=== PATIENT | female | born 1945 | race Caucasian/White ===

== ENCOUNTER → 2016-12-24 | Outpatient (CLI) | payer MEDICARE ==
--- NOTE | 2016-12-24 11:12 | CT ---
EXAM DESCRIPTION: Abdomen/Pelvis w/Contrast CLINICAL HISTORY: ABD AND PELVIC PAIN. COMPARISON: None. TECHNIQUE: Postcontrast CT images of the abdomen and pelvis are obtained. This exam was performed according to our departmental dose-optimization program, which includes automated exposure control, adjustment of the mA and/or kV according to patient size and/or use of iterative reconstruction technique . FINDINGS: Visualized lung bases show moderate coronary artery calcifications. Peripheral interstitial probable scarring in the right lower lobe is seen although there are areas of focal groundglass airspace densities. This is nonspecific. The liver, spleen, adrenal glands, and gallbladder are unremarkable. There is moderate fatty replacement of the pancreas. Moderate atherosclerotic disease is seen. There is moderate right hydronephrosis and hydroureter secondary to a 4 x 6 mm calcification in the distal ureter at the level of the ureterovesical junction. AP diameter of the right renal pelvis measures 2.7 cm. No other calculi are identified. Left kidney and ureter are unremarkable. Urinary bladder is contracted. There is subsidence of the uterus. The ovaries are not identified. Appendix is normal. No small bowel obstruction or inflammation. Stomach is contracted. Moderate amount of formed fecal material throughout the colon is seen. There are moderate scattered diverticuli of the descending to sigmoid colon without associated inflammatory changes or fluid collections. Severe degenerative changes of the spine are seen. IMPRESSION: Moderate right hydronephrosis and hydroureter is seen secondary to 4 x 6 mm calcification of the distal right ureter at the ureterovesical junction. Moderate colon diverticulosis without CT evidence of diverticulitis. Mild to moderate constipation or obstipation of the colon is suggested. Electronically signed by: Chas Castrejon MD 12/24/2016 11:11 AM CDT
--- NOTE | 2016-12-24 12:11 | US ---
EXAM DESCRIPTION: Venous,Lower Extremity LT CLINICAL HISTORY: 70 years, Female, ABNORMAL COAGULATION PROFILE R79.1 COMPARISON: None TECHNIQUE: Duplex venous ultrasound of the left lower extremity was performed. FINDINGS: There is occlusive or near occlusive thrombus involving the left common femoral, superficial femoral, great saphenous, popliteal and peroneal veins. No DVT is identified in the left posterior tibial vein. IMPRESSION: Extensive left-sided deep and superficial venous thrombosis as detailed above. Findings were reported by telephone to the ordering physician by me at the time of this dictation. Electronically signed by: Justin Hairston MD 12/24/2016 12:10 PM CDT Workstation: [id number]
== END | disposition home or self-care (01) ==
LOC: CT 10:07
PROVIDERS: ATTEND Nurse Practitioner
DX: I82.432 Acute embolism and thrombosis of left popliteal vein (principal); I82.492 Acute embolism and thrombosis of other specified deep vein of left lower extremity; I82.412 Acute embolism and thrombosis of left femoral vein; R10.9 Unspecified abdominal pain; R10.2 Pelvic and perineal pain; R79.1 Abnormal coagulation profile